=== PATIENT | male | born 2000 | race Caucasian/White ===

== ENCOUNTER → 2022-12-23 | Outpatient (CLI) | payer BC ==
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
== END | disposition home or self-care (01) ==
LOC: RADUSWWP 10:04
PROVIDERS: ATTEND Family Medicine
DX: R13.10 Dysphagia, unspecified (principal)
CPT/HCPCS: 74220

== ENCOUNTER → 2023-01-02 | Outpatient (CLI) | payer BC ==
--- NOTE | 2023-02-04 06:02 | EM ---
EVENT MONITOR The patient was monitored between the 02 of January and the January. The rhythm strip revealed sinus mechanism with episode of sinus tachycardia. No atrial fibrillation was noted. No pauses were noted. NIMISHA / NANCYN: [id number] /
== END | disposition home or self-care (01) ==
LOC: RADECHMAIN 12:27
PROVIDERS: ATTEND Family Medicine
DX: R00.0 Tachycardia, unspecified (principal); R00.2 Palpitations
CPT/HCPCS: 93270

== ENCOUNTER 2024-11-17 20:36 | Emergency (ER) | payer BC ==
[2024-11-17] MEDS: KETAMINE 10 MG/ML 20 ML VIAL IV STA ×2 (20:36→20:50)
[2024-11-17 20:40] LABS: Glucose,Whole Blood 174 mg/dL (70-110)
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
[2024-11-17 20:54] LABS: Basophils # (A) 0.05 10*3/uL (0.00-0.10); Basophils % (A) 0.4 %; Eosinophils # (A) 0.73 10*3/uL (0.04-0.35); Eosinophils % (A) 5.5 %; HCT 47.1 % (39.6-50.0); HGB 16.1 g/dL (13.0-17.0); Lymphocytes # (A) 5.88 10*3/uL (0.90-5.00); Lymphocytes % (A) 44.4 %; MCH 31.4 pg (27.0-32.0); MCHC 34.2 g/dL (32.0-37.0); MCV 91.8 fL (80.0-97.0); Mean Platelet Volume 10.7 fL (9.5-12.2); Monocytes % (A) 8.3 %; Neutrophils # (A) 5.34 10*3/uL (1.80-7.70); Neutrophils % (A) 40.3 %; Platelet Count 238 10*3/uL (140-440); RBC 5.13 10*6/uL (4.40-5.60); RDW 12.5 % (11.5-14.5); WBC 13.24 10*3/uL (4.50-10.00)
[2024-11-17 21:06] LABS: INR 1.1 (<1.2)
[2024-11-17] MEDS: DIPH,PERTUS(ACELL)TETVAC-LF 0.5 ML VIAL IM ONE (21:06)
[2024-11-17 21:07] LABS: Partial Thromboplastin Time 24.6 sec (22.0-30.0); Prothrombin Time 11.9 sec (10.0-12.5)
[2024-11-17] MEDS: MIDAZOLAM 2 MG/2 ML VIAL IV ONE ×2 (21:15→21:28)
[2024-11-17 21:16] LABS: African American GFR (CKD) >90 (>60 ml/min/1.73 sqM); Albumin 4.9 g/dL (3.5-5.0); Alcohol <10 mg/dL; Anion Gap 23 mmol/L; Blood Urea Nitrogen 13 mg/dL (9-20); Calcium 9.6 mg/dL (8.4-10.2); Carbon Dioxide 13 mmol/L (22-30); Chloride 102 mmol/L (98-107); Glucose 173 mg/dL (74-99); Non-African American GFR(CKD) >90 (>60 ml/min/1.73 sqM); Sodium 138 mmol/L (137-145); Total Bilirubin 0.7 mg/dL (0.2-1.3); Total Protein 7.7 g/dL (6.3-8.2)
[2024-11-17] MEDS: SODIUM CHLORIDE 0.9% 1,000 ML IV SCH (21:22)
[2024-11-17 21:35] LABS: ALT 26 U/L (4-49); AST 44 U/L (17-59); Alkaline Phosphatase 56 U/L (38-126); Potassium 3.5 mmol/L (3.5-5.1)
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
[2024-11-17] MEDS: HYDROmorphone 0.5 MG/0.5 ML SYRINGE IVP STA ×2 (21:56)
[2024-11-17] MEDS: levETIRAcetam IV 2,000 MG in SODIUM CHLORIDE 0.9% 250 ML IVPB ONE (21:57)
[2024-11-17] MEDS: ACETAMINOPHEN IV (For NPO) 1,000 MG in EMPTY BAG 1 BAG IVPB STA (22:05)
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
[2024-11-17 23:50] VITALS: BP 113/74; PULSE 84; RESP 16; TEMP 97.4
== END 2024-11-17 22:30 | disposition other institution (70) ==
LOC: EC 20:36
DX: S12.500A Unspecified displaced fracture of sixth cervical vertebra, initial encounter for closed fracture (principal); S06.5X1A Traumatic subdural hemorrhage with loss of consciousness of 30 minutes or less, initial encounter; S27.329A Contusion of lung, unspecified, initial encounter; Z23 Encounter for immunization; Z88.0 Allergy status to penicillin; V89.2XXA Person injured in unspecified motor-vehicle accident, traffic, initial encounter; Y92.410 Unspecified street and highway as the place of occurrence of the external cause
CPT/HCPCS: 36415; 86900; 86901; 80053; 83605; 84484; 85025; 85610; 85730; 86850; 80320; 72170; 71045; 72125; 70450; 71260; 74177; 90715; 99291; 12002; 96365; 96375; 90471; J2250; J0690; J1953; J0131; J1171; Q9967